=== PATIENT | female | born 1985 | race Two or more races ===

== ENCOUNTER 2021-07-04 04:42 | Inpatient (IN) | payer OTHER ==
[~2021-07-04] VITALS: Ht 154.9 cm; Wt 78.9 kg
[2021-07-04] MEDS ORDERED: PRENATAL TABLE1 EAC1 PO (07:10)
== END 2021-07-07 12:20 | disposition home or self-care (01) | DRG 788 ==
LOC: LDR 04:42 → SURG-SUITE 04:42
PROVIDERS: ADMIT Obstetrics & Gynecology; ATTEND Obstetrics & Gynecology
PROC: 0UB90ZZ Excision of Uterus, Open Approach (ICD-10-PCS; 2021-07-04)
PROC: 4A1HXCZ Monitoring of Products of Conception, Cardiac Rate, External Approach (ICD-10-PCS; 2021-07-04)
PROC: 10D00Z1 Extraction of Products of Conception, Low, Open Approach (ICD-10-PCS; principal; 2021-07-04 14:30)
DX: O82 Encounter for cesarean delivery without indication (principal); O34.13 Maternal care for benign tumor of corpus uteri, third trimester; D25.9 Leiomyoma of uterus, unspecified; Z3A.37 37 weeks gestation of pregnancy; Z37.0 Single live birth; Z20.822 Contact with and (suspected) exposure to COVID-19